=== PATIENT | male | born 1945 | race Caucasian/White ===

== ENCOUNTER 2016-10-02 11:07 | Inpatient (IN) ==
[2016-10-02] MEDS ORDERED: ASPIRIN 325 MG TABLET PO STA (11:50)
[2016-10-02] MEDS ORDERED: ONDANSETRON 4 MG/2 ML VIAL IV STA (11:50)
[2016-10-02] MEDS ORDERED: NITROGLYCERIN SL 0.4 MG TABLET SL PRN (11:50)
[2016-10-02] MEDS ORDERED: NITROGLYCERIN 2% OINT 1 INCH/GM PACK TOP STA (11:50)
[2016-10-02] MEDS ORDERED: MORPHINE 2 MG/1 ML SYRINGE IV STA (11:50)
[2016-10-02] MEDS ORDERED: ENOXAPARIN 100 MG/ML SYRINGE SUBCUT STA (11:50)
--- NOTE | 2016-10-02 11:54 | EKG Report ---
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
[2016-10-02 11:58] LABS: Basophils % 0.6 % (0.0-0.8); Eosinophils # 0.1 10*3/uL (0.0-0.87); Eosinophils % 2.1 % (0.00-10.9); Hematocrit 37.8 VOL% (42.0-52.0); Hemoglobin 12.6 GM/DL (14.0-18.0); Immature Granulocytes % 0.4 %; Immature Granulocytes Absolute 0.02 #; Lymphocytes # 1.7 10*3/uL (1.4-4.0); Lymphocytes % 31.5 % (21.2-54.2); Mean Corpuscular HGB Conc 33.3 GM/DL (32-36); Mean Corpuscular Hemoglobin 27 PG (27-34); Mean Corpuscular Volume 81.8 FL (87-102); Mean Platelet Volume 10.8 FL (9.6-12.0); Monocytes # 0.5 10*3/uL (0.11-0.8); Monocytes % 9.6 % (1.7-12.7); Neutrophils % 55.8 % (38.7-73.9); Platelet Count 197 T/CUMM (130-400); Red Blood Count 4.62 MC/CUMM (3.8-5.5); Red Cell Distribution Width 14.1 % (9.3-17.3); White Blood Count 5.3 T/CUMM (4-12)
[2016-10-02 12:04] LABS: PT Patient Result 10.4 SECS
[2016-10-02] MEDS ORDERED: ENOXAPARIN 100 MG/ML SYRINGE SUBCUT ONE (12:08)
[2016-10-02] MEDS ORDERED: NITROGLYCERIN 2% OINT 1 INCH/GM PACK TOP ONE (12:09)
[2016-10-02] MEDS ORDERED: ONDANSETRON 4 MG/2 ML VIAL ONE (12:09)
[2016-10-02] MEDS ORDERED: ASPIRIN 325 MG TABLET ONE (12:09)
[2016-10-02] MEDS ORDERED: MORPHINE 2 MG/1 ML SYRINGE ONE (12:09)
--- NOTE | 2016-10-02 12:12 | Emergency Department Note ---
Bella Gabriel Hilary, am scribing for, and in the presence of, Pedro Horn MD 11: 51. Justina Gabriel James D, MD, personally performed the services described in this documentation, ascribed by Andria Blanco in my presence, and it is both accurate and complete . Arrival - Arrival Chief Complaint: Chest Pain Stated Complaint: chest pain ED Nursing Triage Note: Left sided chest pain onset x 1 week - pt denies radiation or SOB Mode of Arrival: Ambulatory Limitations: No Limitations Source: Patient, RN Notes Reviewed - History of Present Illness HPI Narrative: Pt is a 70 y/o white male presenting to the ED with c/o chest pain which onset a week ago. Pt states the pain feels like it is right behind his shoulder blade. Pt confirms diaphoresis and tightness in his chest, SOB but denies nausea or blood in bowels. Pt has a PMHx of HTN and Dyslipidemia. Pt smokes a pack a day. No other complaints or problems stated in the ED. Onset (ago): week(s) Consistency: intermittent, now resolved Allergies/Adverse Reactions: Allergies Allergy/AdvReac Type Severity Reaction Status Date / Time No Known Allergies Allergy Unverified 10/02/16 11:08 Home Medications: Home Medications Medication Instructions Recorded Confirmed Type Carisoprodol [Soma] 350 mg PO DAILY PRN 10/02/16 10/02/16 History Celecoxib [Celebrex] 200 mg PO DAILY 10/02/16 10/02/16 History Esomeprazole Magnesium [Nexium] 20 mg PO DAILY 10/02/16 10/02/16 History Ezetimibe/Simvastatin 10-20 1 tablet PO DAILY 10/02/16 10/02/16 History [Vytorin 10-20] Review of System - Review of System 12 point system: reviewed and no additional remarkable complaints except as stated - Review of System Constitutional: Present: diaphoresis. Absent: fever Respiratory: Present: respiratory distress (SOB) Cardiovascular: Present: chest pain. Absent: dyspnea on exertion Gastrointestinal: Absent: nausea, hematochezia Medical,Surgical,& Family Hx - Medical History Cardio: History of: Hypertension Endocrine: History of: Dyslipidemia - Social History Smoking Status: Current every day smoker Frequency of Alcohol Use: Occasionally Type of Drug Use: None Exam Physical Examination: GENERAL: This is a well-nourished, well-developed in no apparent distress. VITAL SIGNS: Temperature: 97.3 Pulse: 70 Respiratory: 20 Blood Pressure: 169 /84 02Sat: 97 HEENT: Head is normocephalic and atraumatic. Pupils are equally round and reactive to light. Extraocular movement are intact. Oropharynx is benign with moist mucous membranes. NECK: Neck is soft and supple without tenderness. There are no masses. There is no lymphadenopathy. LUNGS: Lungs are clear to auscultation bilaterally. Chest rises symmetrically. There is no chest wall tenderness. CV: Heart is regular rate and rhythm without murmurs, rubs, or gallops. ABDOMEN: Abdomen is soft, non-tender to palpation. There are no abnormal masses palpated. There is no organomegaly. Bowel sounds are present and active. SKIN: Skin is warm and dry. No rash. EXTREMITIES: Patient has full range of motion without tenderness. There is no pedal edema. NEUROLOGIC: Awake, alert, and oriented x4. Cranial nerves II through XII are grossly intact. There are no motorsensory deficits. PSYCHIATRIC: Normal affect. Normal mood. Vital Signs: Vital Signs Temperature 97.3 F L 10/02/16 11:35 Pulse Rate 70 10/02/16 11:35 Respiratory Rate 18 10/02/16 11:35 Blood Pressure 169/84 10/02/16 11:35 O2 Sat by Pulse Oximetry 97 10/02/16 11:09 Course - Consultations Consultation #1: Discussed with Dr. Sánchez. The patient will be seen in the emergency department. Time: 13:25 Results - Labs CBC & BMP: 10/02/16 11:43 10/02/16 11:43 Lab Results: I have reviewed the patients labs Labs: Laboratory Tests 10/02/16 11:43 WBC 5.3 RBC 4.62 Hgb 12.6 L Hct 37.8 L MCV 81.8 L - EKG EKG results: interpreted by ERMD - Impressions EKG: Normal sinus rhythm with a rate of 60, nonspecific ST-T wave changes, normal axis. Old septal IL. - Diagnostic Findings Procedure: Chest x-ray: report reviewed by me (1. Mild cardiomegaly 2. No acute pulmonary process is identified) Disposition Clinical Impression: ACS (acute coronary syndrome), Hyperlipidemia Case discussed with: patient Disposition: Still a Patient Condition: Guarded Time of Disposition: 13:08
[2016-10-02 12:24] LABS: Alanine Aminotransferase 21 U/L (16-61); Albumin 4.1 G/DL (3.4-5.0); Alkaline Phosphatase 51 U/L (45-117); Aspartate Amino Transferase 17 U/L (0-37); Bilirubin,Total < 0.39 MG/DL (0.2-1.0); Blood Urea Nitrogen 13 MG/DL (7-18); Calcium 8.4 MG/DL (8.5-10.1); Glucose 83 MG/DL (74-106); Osmolality,Calculated 279.3 MOS/KG (273-304); Potassium 4.1 MMOL/L (3.5-5.1); Sodium 141 MMOL/L (136-145); Total Protein 6.6 G/DL (6.4-8.3)
--- NOTE | 2016-10-02 12:41 | XRay Report ---
Exam: Chest 2 views Date: October 02, 2016 at 12:04 PM Comparison: None Reason: Chest pain Findings: The cardiac silhouette is mildly enlarged. No focal consolidation, pneumothorax or pleural effusion is identified. No acute osseous process is seen. Impression: 1. Mild cardiomegaly. 2. No acute pulmonary process is identified. PROCEDURE INTERPRETED AT [facility] DEPARTMENT OF RADIOLOGY Final Report Signed by: Dr. Nicolasa Bryan
[2016-10-02] MEDS ORDERED: ONDANSETRON 4 MG/2 ML VIAL IV PRN (14:24)
[2016-10-02] MEDS ORDERED: MAGNESIUM SULF RIDER 2 GM in PREMIX 1 EACH IV PRN (14:24)
[2016-10-02] MEDS ORDERED: MAGNESIUM SULF RIDER 4 GM in PREMIX 1 EACH IV PRN (14:24)
[2016-10-02] MEDS ORDERED: DOCUSATE SODIUM 100 MG CAPSULE PO PRN (14:24)
[2016-10-02] MEDS ORDERED: ZALEPLON 5 MG CAPSULE PO PRN (14:24)
[2016-10-02] MEDS ORDERED: ACETAMINOPHEN 325 MG TABLET PO PRN (14:24)
[2016-10-02] MEDS ORDERED: CARISOPRODOL 350 MG TABLET PO PRN (14:27)
--- NOTE | 2016-10-02 14:41 | Cardiology History & Physical ---
Assessment and Plan - Time spent with patient Time spent with patient: Greater than 30 minutes Time spent discussing smoking cessation with patient: 3 to 10 minutes (1) Chest pain Status: Acute Assessment and plan: SEE PLAN OF CARE LISTED BELOW Current Visit: Yes (2) Tobacco abuse Status: Chronic Assessment and plan: SEE PLAN OF CARE LISTED BELOW Current Visit: Yes (3) PVD (peripheral vascular disease) Status: Chronic Assessment and plan: SEE PLAN OF CARE LISTED BELOW Current Visit: Yes (4) Abdominal bruit Status: Acute Assessment and plan: SEE PLAN OF CARE LISTED BELOW Current Visit: Yes (5) Hyperlipidemia Status: Acute Current Visit: Yes History of Present Illness Chief complaint: back pain, chest pain History of present illness: FILTER CHANGING TECHNICIAN: DR. SÁNCHEZ (NEW) Mr. Diaz, 70WM, not previously followed by cardiology. Risk factors include: Age, tobaccoism, peripheral vascular disease, dyslipidemia. Presented to the emergency department this morning after experiencing approximately 1 week of left upper back pain, located primarily under the left scapula. This does not radiate nor cause nausea, vomiting or diaphoresis. It is not associated with shortness of breath. Unable to reproduce the discomfort with palpation. Moving in a certain direction does improve the discomfort. However , yesterday, after playing golf he began to experience a mid chest fullness as if food was stuck in his esophagus. This lasted approximately 20 minutes. He felt clammy and diaphoretic at that time. He rates the discomfort as a 7 on a scale of 1-10. He can identify no aggravating factors nor any alleviating factors. There is no radiation associated chest discomfort. He does take Celebrex daily, also a PPI daily. Upon examination, patient has a soft abdominal bruit, decreased pulses noted to both lower extremities. He is scheduled to see Dr. Leigh tomorrow to discuss findings of recent workup regarding his lower extremity claudication symptoms. He has previously seen Dr. Oliver Sheikh and was started on Pletal several years ago. He felt as if the Pletal did not change his symptoms before he did not continue to take. He is very active. 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 He tells me he is left-handed and carries heavy items frequently in his left arm and shoulder. 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 He tells me as he begins running down the court he feels the right lower leg cramp, burn and he must stop after approximately 2 minutes. However, after he rests a few minutes he tells me he can then go as long as he would like to get. Majority of the load he reports having had a stress test several years ago at [facility] but not does not formally see a live out nanny. He believes this was a preop evaluation for knee surgery Cardiac biomarkers are negative, EKG reveals possible old infarct. He does smoke approximately 1 pack per day for the past 50+ years. He also drinks alcohol routinely. He did not know his father's medical history that his mother lived to be 88, maternal grandparents both lived to be in their late 90s. Upon examination, patient does have a soft abdominal bruit. I have discussed this with Dr. Sánchez. Patient is agreeable to stay overnight. I will order CT angiogram of chest/aorta today. Echocardiogram. Possible stress test in the morning. Depending on results of CT the result may consult Dr. Leigh to see during hospital stay as he has an appointment to see Dr. Leigh tomorrow for right lower extremity claudication. ASSESSMENT/PLAN: 1. CHEST PAIN - CTA chest and Aorta today. Patient certainly has risk factors for CAD. He is agreeable for overnight stay for CT of his chest and stress test tomorrow. 2. DYSLIPIDEMIA - lipid profile in the morning. Continue current lipid- lowering agent 3. ABDOMINAL BRUIT -CT of aorta today 4. PVD - followed by Dr. Iniguez 5. TOBACCOISM - greater than 5 minutes was spent today discussing the merits of tobacco cessation Home Medications Medication Instructions Recorded Confirmed Type Carisoprodol [Soma] 350 mg PO DAILY PRN 10/02/16 10/02/16 History Celecoxib [Celebrex] 200 mg PO DAILY 10/02/16 10/02/16 History Esomeprazole Magnesium [Nexium] 20 mg PO DAILY 10/02/16 10/02/16 History Ezetimibe/Simvastatin 10-20 1 tablet PO DAILY 10/02/16 10/02/16 History [Vytorin 10-20] Allergies Allergy/AdvReac Type Severity Reaction Status Date / Time No Known Allergies Allergy Unverified 10/02/16 11:08 Review of systems: REVIEW OF SYSTEMS: See HPI - Constitutional Constitutional: Absent: syncope, anorexia, night sweats - EENT Eyes: Absent: blurry vision, loss of vision, diplopia Ears: Absent: decreased hearing, ear pain, ear discharge - Cardiovascular Cardiovascular: Denies: chest pain with exertion, dyspnea on exertion, edema, palpitations. Absent: chest pain with deep breath. Present: Claudication right lower extremity. See HPI - Respiratory Respiratory: Denies: ALMEIDA, cough. Absent: wheezing, hemoptysis, change in phlegm color - Gastrointestinal Gastrointestinal: Denies: constipation. Absent: abdominal pain, hematemesis, hematochezia, melena, change in bowel habits, nausea - Genitourinary Genitourinary: Absent: difficulty urinating, dysuria, urinary hesitancy, flank pain - Musculoskeletal Musculoskeletal: Present: back pain Absent: joint swelling, muscle cramps, muscle weakness - Neurological Neurological: Present: normal gait without frequent falls. Absent: dizziness, hemiparesis - Psychiatric Psychiatric: Absent: anxiety, depression, difficulty concentrating - Endocrine Endocrine: Absent: cold intolerance, heat intolerance, polyuria, polyphagia, polydipsia - Hematologic/Lymphatic Hematologic/Lymphatic: Present: easy bruising. Absent: easy bleeding -Integumentary Integumentary: Absent: lesions, rashes, skin breakdown Medical,Surgical,& Family Hx - Medical History Cardio: History of: Hypertension, PVD No history of: CAD, HI Endocrine: History of: Dyslipidemia - Social History Smoking Status: Current every day smoker Have you smoked in the last 12 months: Yes Time spent discussing smoking cessation with patient: 3 to 10 minutes Frequency of Alcohol Use: Occasionally Type of Drug Use: None Marital Status: Single Lives With:: Alone Functional capacity: independent ambulation Cardiology Physical Exam - Constitutional Vitals: Vital Signs Temp Pulse Resp BP Pulse Ox 97.3 F L 58 L 18 145/81 100 10/02/16 11:35 10/02/16 12:45 10/02/16 12:45 10/02/16 12:45 10/02/16 12:45 Intake and Output 10/01/16 10/02/16 10/02/16 23:59 07:59 15:59 Other: Weight 72.575 kg Patient Weight 10/02/16 23:59 Weight 72.575 kg Exam: General: [Appears well with no apparent distress.] [Pleasant and cooperative. ] [Appears comfortable.] HEENT: [PERRL, normocephalic, atraumatic. Mucous membranes moist. No jaundice noted. Conjunctiva moist and clear, sclerae anicteric] Neck: No JVD/HJR, no thyromegaly or lymphadenopathy noted. Cardiac: [Regular rate and rhythm.] [No obvious murmur, rub or gallop.] Lungs: [Clear to auscultation without accessory muscle use to assist the respiratory pattern.] Not requiring oxygen Abdomen: Soft, bowel sounds normoactive. Nontender and nondistended. Soft abdominal bruit noted. No mass or thrill appreciated Musculoskeletal: No fluid collection. Decreased range of motion is noted. Extremities: No clubbing, cyanosis noted. [ No edema noted.] Upper extremity pulses 2+. Difficult to palpate bilateral lower extremities though warm with brisk cap refill. Skin: No unusual lesions or rashes. No skin breakdown appreciated. Neuro: Awake, alert and oriented 3. Moves all extremities well without hemiparesis or paralysis. No essential tremor is appreciated. Result/EKG - Labs CBC & BMP: 10/02/16 11:43 10/02/16 11:43 Lab Results: I have reviewed the past 24 hour labs Labs: Laboratory Results - last 24 hr 10/02/16 10/02/16 10/02/16 11:43 11:43 11:43 WBC 5.3 RBC 4.62 Hgb 12.6 L Hct 37.8 L MCV 81.8 L MCH 27 MCHC 33.3 RDW 14.1 Plt Count 197 MPV 10.8 Neut % (Auto) 55.8 Lymph % (Auto) 31.5 Colbert % (Auto) 9.6 Eos % (Auto) 2.1 Baso % (Auto) 0.6 Neut # (Auto) 3.0 Lymph # (Auto) 1.7 Colbert # (Auto) 0.5 Eos # (Auto) 0.1 Baso # (Auto) 0.0 Immature Gran % 0.4 Nucleated RBC % 0.0 Immature Gran # 0.02 Nucleated RBCs # 0.00 INR 1.0 PT Patient/Control Mix 10.4 Circ Anticoag PTT 25.0 Sodium Potassium Chloride Carbon Dioxide Anion Gap BUN Creatinine GFR Calculation BUN/Creatinine Ratio Glucose Calculated Osmolality Calcium Total Bilirubin AST ALT Alkaline Phosphatase Troponin I < 0.015 Total Protein Albumin Globulin Albumin/Globulin Ratio 10/02/16 11:43 WBC RBC Hgb Hct MCV MCH MCHC RDW Plt Count MPV Neut % (Auto) Lymph % (Auto) Colbert % (Auto) Eos % (Auto) Baso % (Auto) Neut # (Auto) Lymph # (Auto) Colbert # (Auto) Eos # (Auto) Baso # (Auto) Immature Gran % Nucleated RBC % Immature Gran # Nucleated RBCs # INR PT Patient/Control Mix Circ Anticoag PTT Sodium 141 Potassium 4.1 Chloride 106 Carbon Dioxide 29 Anion Gap 10.1 BUN 13 Creatinine 0.70 GFR Calculation 102 BUN/Creatinine Ratio 18.00 Glucose 83 Calculated Osmolality 279.3 Calcium 8.4 L Total Bilirubin < 0.39 AST 17 ALT 21 Alkaline Phosphatase 51 Troponin I Total Protein 6.6 Albumin 4.1 Globulin 2.5 Albumin/Globulin Ratio 1.6 - Diagnostic Findings Procedure: Chest x-ray: report reviewed by me - EKG EKG results: interpreted by me EKG shows: sinus rhythm
--- NOTE | 2016-10-02 14:58 | EKG Report ---
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
[2016-10-02 15:09] LABS: Risk Ratio 3.6; Thyroid Stimulating Hormone 1.03 uIU/ml (0.358-3.74); VLDL CHOLESTEROL 62.4 MG/DL
--- NOTE | 2016-10-02 15:37 | CT Report ---
History: Back pain. Abdominal bruit. Chest pain Date: 10/02/2016 Study: CT angiogram of the aorta complete Comparison exam: No previous similar study Thin spiral CT sections were obtained through the entire aorta following 100 mL Omnipaque 350 IV contrast. Multiplanar reconstruction images are also evaluated. 3-D images were also generated, archived, and analyzed. This CT exam was performed using one or more the following dose reduction techniques: Automated exposure control, adjustment of the MA and/or KV according to patient size, or use of iterative reconstruction technique. There is no thoracic aortic dissection or focal aneurysm. There is a variant arch anatomy, as the left vertebral artery originates directly from the aorta, just proximal to the left subclavian artery. There is mild aortic arch calcification. There is at least mild coronary artery calcification with involvement of the left anterior descending and left circumflex and right coronary arteries. There is no significant stenosis at the origins of the celiac, superior mesenteric, or patent inferior mesenteric arteries. There is no high-grade stenosis at the origins of the renal arteries. There is mild calcified plaque in the proximal aspect of either main renal artery. There is a small accessory renal artery to the lower pole left kidney. There is no dissection or focal aneurysm of the abdominal aorta. There is some moderate atherosclerotic irregularity of the infrarenal abdominal aorta and common iliac arteries. There is no high-grade stenosis of the common or external iliac arteries or at the proximal aspect of either internal iliac artery. There is moderate centrilobular emphysema, more so in the upper lung zones. There is some localized paraseptal emphysema in the right lower lobe posteriorly and inferiorly. There is mild platelike scar or subsegmental atelectasis in the right lower lobe. There are spondylotic changes of the thoracic spine. There is no mediastinal lymphadenopathy or mediastinal mass otherwise. There is a small hiatal hernia. There are 2 rounded low densities measuring 13 mm and less, likely hepatic cysts. The liver is otherwise unremarkable. The pancreas, adrenal glands, kidneys, bile ducts, and fluid-filled gallbladder are unremarkable. There is nonspecific diffuse splenomegaly. The spleen measures 12.8 x 10.8 x 7.3 cm. There is no lymphadenopathy in the upper abdomen. There is degenerative disc disease in the spine. There is no pelvic mass. There is moderate nonspecific diffuse prominence of prostate gland. Scattered diverticula are noted in sigmoid colon. The appendix is normal. Impression: No evidence of aortic aneurysm or dissection. No high-grade stenosis of the thoracic or abdominal aorta. Coronary artery calcification. Variant anatomy with left vertebral artery originating directly from the aortic arch. There is also a small accessory renal artery to the lower pole left kidney. Nonspecific splenomegaly Diverticulosis PROCEDURE INTERPRETED AT [facility] DEPARTMENT OF RADIOLOGY Final Report Signed by: Dr. Bre Underwood
[2016-10-02] MEDS: PANTOPRAZOLE 40 MG TABLET PO SCH (18:01)
[2016-10-02] MEDS: METOPROLOL TARTRATE 25 MG TABLET PO SCH (21:20)
[2016-10-03 05:12] LABS: Basophils % 0.7 % (0.0-0.8); Eosinophils # 0.1 10*3/uL (0.0-0.87); Eosinophils % 2.2 % (0.00-10.9); Hemoglobin 11.6 GM/DL (14.0-18.0); Immature Granulocytes % 0.5 %; Immature Granulocytes Absolute 0.03 #; Lymphocytes # 1.7 10*3/uL (1.4-4.0); Lymphocytes % 31.1 % (21.2-54.2); Mean Corpuscular HGB Conc 32.2 GM/DL (32-36); Mean Corpuscular Hemoglobin 26 PG (27-34); Mean Corpuscular Volume 81.1 FL (87-102); Mean Platelet Volume 10.7 FL (9.6-12.0); Monocytes # 0.5 10*3/uL (0.11-0.8); Monocytes % 8.3 % (1.7-12.7); Neutrophils # 3.2 10*3/uL (1.4-7.4); Neutrophils % 57.2 % (38.7-73.9); Platelet Count 181 T/CUMM (130-400); Red Blood Count 4.44 MC/CUMM (3.8-5.5); White Blood Count 5.5 T/CUMM (4-12)
[2016-10-03 05:56] LABS: Alanine Aminotransferase 19 U/L (16-61); Albumin 3.7 G/DL (3.4-5.0); Alkaline Phosphatase 50 U/L (45-117); Aspartate Amino Transferase 15 U/L (0-37); Bilirubin,Total < 0.39 MG/DL (0.2-1.0); Blood Urea Nitrogen 12 MG/DL (7-18); Calcium 8.6 MG/DL (8.5-10.1); Glucose 93 MG/DL (74-106); Osmolality,Calculated 282.1 MOS/KG (273-304); Sodium 142 MMOL/L (136-145); Total Protein 5.9 G/DL (6.4-8.3)
[2016-10-03] MEDS ORDERED: REGADENOSON 0.4 MG/5 ML SYRINGE IV ONE (09:01)
--- NOTE | 2016-10-03 09:27 | ECHO Report ---
Pedro Alaniz 10/02/2016 Exam Date: 15:57 Referring Physician: Venita Julien Technologist: RAVI Age: 70 Ht (in): 67 Wt (lb): 160 MExam Location: [facility] Gender: Echo [id number]: Chest pain, unspecified, Nicotine deIndications:pendence, cigarettes, uncomplicated, Hyperlipidemia, unspecified, Essential (primary) hypertension, Peripheral vascular disease, unspecified BP: 169 / 84 HR: 52 SinusRhythm: GoodTechnical Quality: IMPRESSIONS Normal LV systolic function, ejection fraction 60%. Grade 1/4 diastolic dysfunction. Mild mitral and tricuspid regurgitation. Trace pulmonic regurgitation. Pulmonary hypertension with pulmonary artery pressure estimated at 50 mmHg. Mildly dilated aortic root. MEASUREMENTS (Male / Female) Normal Values 2D ECHO LV Diastolic Diameter PLAX 5.6 cm 4.2 - 5.9 / 3.9 - 5.3 cm LV Systolic Diameter PLAX 3.6 cm LV Fractional Shortening PLAX 36.3 % IVS Diastolic Thickness 1.1 cm 0.6 - 1.0 / 0.6 - 0.9 cm LVPW Diastolic Thickness 1.0 cm 0.6 - 1.0 / 0.6 - 0.9 cm RV Internal Dim ED PLAX 3.3 cm Aortic Root Diameter 3.9 cm LA Systolic Diameter LX 3.3 cm 3.0 - 4.0 / 2.7 - 3.8 cm DOPPLER TR Peak Velocity 315.0 cm/s TR Peak Gradient 39.7 mmHg FINDINGS Left Ventricle Normal left ventricular cavity size. Mild left ventricular hypertrophy. Left ventricular ejection fraction is estimated at 60 %. Right Ventricle The right ventricle is normal in size and function. Right Atrium Normal size. Left Atrium Normal size. Mitral Valve Thickened mitral valve. Mild mitral valve regurgitation. Aortic Valve Aortic valve sclerosis without stenosis. No aortic valve regurgitation. Tricuspid Valve Morphologically normal tricuspid valve. Mild tricuspid valve regurgitation. Tricuspid regurgitation velocities suggest a PAP of 50 mmHg. Pulmonic Valve Morphologically normal pulmonic valve. Trace pulmonary valve regurgitation. Pericardium Normal pericardium without effusion. Aorta Mildly dilated. Chiara Conteh MD (Electronically Signed) 03 Oct 2016 09:26Final Date:
[2016-10-03] MEDS: EZETIMIBE PO SCH (10:30)
[2016-10-03] MEDS: ASPIRIN EC 81 MG TABLET PO SCH (10:30)
[2016-10-03] MEDS: SIMVASTATIN PO SCH (10:30)
[2016-10-03] MEDS: METOPROLOL TARTRATE 25 MG TABLET PO SCH ×2 (10:30→21:24)
[2016-10-03] MEDS: PANTOPRAZOLE 40 MG TABLET PO SCH (10:30)
--- NOTE | 2016-10-03 11:32 | Cardiology Progress Note ---
Assessment and Plan - Time spent with patient Time spent with patient: Greater than 30 minutes (1) Chest pain Status: Resolved Assessment and plan: SEE PLAN OF CARE LISTED BELOW Current Visit: Yes (2) Tobacco abuse Status: Chronic Assessment and plan: SEE PLAN OF CARE LISTED BELOW Current Visit: Yes (3) PVD (peripheral vascular disease) Status: Chronic Assessment and plan: SEE PLAN OF CARE LISTED BELOW Current Visit: Yes (4) Abdominal bruit Status: Chronic Assessment and plan: SEE PLAN OF CARE LISTED BELOW Current Visit: Yes (5) Hyperlipidemia Status: Chronic Current Visit: Yes Cardiology - PN: Subj Interval history: 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 Diaz, 70WM, not previously followed by cardiology. Risk factors include: Age, tobaccoism, peripheral vascular disease, dyslipidemia. Presented to the emergency department Sunday morning with complaints of left upper back pain, shortness of breath. He is n.p.o. this morning for stress testing. Overnight, he has had no chest pain, heaviness or tightness. He did undergo CT of the aorta yesterday which revealed no significant abnormality. Cardiac biomarkers negative. EKG unremarkable. Patient would like to see Dr. Iniguez today if possible. He currently has an appointment at 1 PM to discuss symptoms of claudication of his right lower extremity. Echo reveals EF 60%, no significant valvular abnormality, PAP 50mmHg. ASSESSMENT/PLAN: 1. CHEST PAIN - CTA Chest and Aorta revealed no acute abnormality. No dissection or aneurysm. NPO for stress testing today. 2. DYSLIPIDEMIA - LDL 103. Trigs 312. Will add [place] 3 BID and have him follow up with PCP for future monitoring. 3. ABDOMINAL BRUIT - benign per CT Chest and Aorta. 4. PVD - followed by Dr. Iniguez. Recommends ASA 81mg orally daily and smoking cessation. Appreciate Dr. Iniguez seeing him today. 5. TOBACCOISM - greater than 5 minutes was spent today discussing the merits of tobacco cessation Exam (Progress Note) - Constitutional Vitals: Period Temp Pulse Resp BP Sys/Webber Pulse Ox Last 24 Hr 97.5 F-98.9 F 53-77 16-20 111-179/59-79 91-99 Exam: General: [Appears well with no apparent distress.] [Pleasant and cooperative. ] [Appears comfortable.] HEENT: [PERRL, normocephalic, atraumatic. Mucous membranes moist. No jaundice noted. Conjunctiva moist and clear, sclerae anicteric] Neck: No JVD/HJR, no thyromegaly or lymphadenopathy noted. No carotid bruit appreciated Cardiac: [Regular rate and rhythm.] [No murmur rub or gallop.] Lungs: [Clear to auscultation without accessory muscle use to assist the respiratory pattern.] Not requiring oxygen Abdomen: Soft, bowel sounds normoactive. Nontender and nondistended. No auscultated bruit today. No abdominal thrill noted. No masses noted. Musculoskeletal: No fluid collection. Decreased range of motion is noted. Extremities: No clubbing, cyanosis noted. [ No edema noted.] Upper extremity pulses 2+. Left lower extremity pulse one plus. Difficult to palpate right lower extremity pulse. Capillary refill less than 3 seconds. Skin: No unusual lesions or rashes. No skin breakdown appreciated. Neuro: Awake, alert and oriented 3. Moves all extremities well without hemiparesis or paralysis. No essential tremor is appreciated. Result/EKG - Labs CBC & BMP: 10/03/16 04:54 10/03/16 04:54 Lab Results: I have reviewed the past 24 hour labs Labs: Laboratory Results - last 24 hr 10/02/16 10/02/16 10/03/16 15:01 17:56 04:54 WBC 5.5 RBC 4.44 Hgb 11.6 L Hct 36.0 L MCV 81.1 L MCH 26 L MCHC 32.2 RDW 14.0 Plt Count 181 MPV 10.7 Neut % (Auto) 57.2 Lymph % (Auto) 31.1 [place] % (Auto) 8.3 Eos % (Auto) 2.2 Baso % (Auto) 0.7 Neut # (Auto) 3.2 Lymph # (Auto) 1.7 [place] # (Auto) 0.5 Eos # (Auto) 0.1 Baso # (Auto) 0.0 Immature Gran % 0.5 Nucleated RBC % 0.0 Immature Gran # 0.03 Nucleated RBCs # 0.00 Sodium Potassium Chloride Carbon Dioxide Anion Gap BUN Creatinine GFR Calculation BUN/Creatinine Ratio Glucose Calculated Osmolality Calcium Total Bilirubin AST ALT Alkaline Phosphatase Troponin I < 0.015 < 0.015 Total Protein Albumin Globulin Albumin/Globulin Ratio 10/03/16 04:54 WBC RBC Hgb Hct MCV MCH MCHC RDW Plt Count MPV Neut % (Auto) Lymph % (Auto) [place] % (Auto) Eos % (Auto) Baso % (Auto) Neut # (Auto) Lymph # (Auto) [place] # (Auto) Eos # (Auto) Baso # (Auto) Immature Gran % Nucleated RBC % Immature Gran # Nucleated RBCs # Sodium 142 Potassium 5.0 Chloride 107 Carbon Dioxide 29 Anion Gap 11.0 BUN 12 Creatinine 0.90 GFR Calculation 88 BUN/Creatinine Ratio 13.00 Glucose 93 Calculated Osmolality 282.1 Calcium 8.6 Total Bilirubin < 0.39 AST 15 ALT 19 Alkaline Phosphatase 50 Troponin I Total Protein 5.9 L Albumin 3.7 Globulin 2.2 L Albumin/Globulin Ratio 1.6 - Diagnostic Findings Procedure: Chest x-ray: report reviewed by me, CT - chest: report reviewed by me , Ultrasound: report reviewed by me (Echo) - EKG EKG results: interpreted by me EKG shows: sinus rhythm
--- NOTE | 2016-10-03 12:05 | Vascular Surgery Consult Note ---
History of Present Illness Chief complaint: claudication History of present illness: Mr. Alaniz is a 70 year old male Mr. Kearney is a 70-year-old man with a long history of cigarette smoking admitted with chest pain has been evaluated and apparently does not have significant coronary ischemia. He does have a history of having seen Dr. Cortes sometime around 2014 and at that point had some mildly diminished pulses in his right leg compared to the left although both ABIs were normal he was started on Pletal in the past 8 months but states he cannot tell any difference. His primary complaint is that he notes when he first gets up in the morning it takes a little while before he will have some stinging and cramping in the right calf but then is able to go out to work throughout the day without difficulty. 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 He is recently undergone lower arterial Dopplers at our office and we have an CHARBEL on the right of 0.8 and on the left 0.9 I do not have the study to completely look at the pulse volume recordings at this point in time but will do so. In discussing the situation with him my thoughts are that his primary treatment is cigarette cessation. I think he should continue to work and call basketball and exercise I do recommend starting a 81 mg aspirin on a daily basis which she does not do. But I did emphasize the first choice of treatment will be's cigarette cessation. I do not recommend consideration for intervention with his minimal symptoms until such time as the symptoms have continued if they become life limiting and he has actually quit smoking. Home Medications Medication Instructions Recorded Confirmed Type Ascorbic Acid [Vitamin C] 500 mg PO DAILY 10/02/16 10/02/16 History Carisoprodol [Soma] 350 mg PO DAILY PRN 10/02/16 10/02/16 History Celecoxib [Celebrex] 200 mg PO DAILY 10/02/16 10/02/16 History Cholecalciferol (Vitamin D3) 5,000 unit PO DAILY 10/02/16 10/02/16 History [Vitamin D3] Cilostazol [Cilostazol] 100 mg PO BID 10/02/16 10/02/16 History Esomeprazole Magnesium [Nexium] 20 mg PO DAILY 10/02/16 10/02/16 History Ezetimibe/Simvastatin 10-20 1 tablet PO DAILY 10/02/16 10/02/16 History [Vytorin 10-20] Hydrocodone/Acetaminophen 1 tablet PO Q6HR PRN 10/02/16 10/02/16 History [Hydrocodon-Acetaminoph 7.5-325] Krill Oil 500 mg PO DAILY 10/02/16 10/02/16 History Multivitamin [Multivitamins] 1 tablet PO DAILY 10/02/16 10/02/16 History Testosterone [Androgel 1.62% Gel 1 % DIRECTED 10/02/16 10/02/16 History PUMP] Allergies Allergy/AdvReac Type Severity Reaction Status Date / Time No Known Allergies Allergy Unverified 10/02/16 11:08 Medical,Surgical,& Family Hx - Medical History Cardio: History of: Hypertension, PVD No history of: CAD, AR Psychological: History of: Anxiety Disorders Endocrine: History of: Dyslipidemia Gastrointestinal: History of: GERD Musculoskeletal: History of: Back/Neck Problems (DDD) - Surgical History Orthopedic Surgeries: Surgical HX of;: Orthopedic Surgery (BACK, R rotator, BL Knee) - Family History Family History: Reports;: Family Heart Disease, Family Hypertension - Social History Smoking Status: Current every day smoker Frequency of Alcohol Use: Occasionally Type of Drug Use: None Exam - Constitutional Vitals: Period Temp Pulse Resp BP Sys/Webber Pulse Ox Last 24 Hr 97.5 F-98.9 F 53-77 16-20 111-179/59-79 91-99 Results - Labs CBC & BMP: 10/03/16 04:54 10/03/16 04:54
--- NOTE | 2016-10-03 13:32 | Event Note ---
Patient underwent stress testing this morning. Patient traversed treadmill for 7-1/2 minutes however, due to right lower extremity claudication, patient was transitioned to Lexiscan protocol. He had no chest pain, heaviness or tightness. No ST abnormality noted. Occasional PVC noted. Blood pressure responded appropriately. Now, patient is being transitioned to nuclear medicine for final scan. Dr. Sánchez to read, interpreted and advise.
--- NOTE | 2016-10-03 19:27 | Nuclear Medicine Report ---
CARDIAC STRESS TEST REPORT INDICATION: Chest test performed, attempted treadmill stress test, which was converted to Lexiscan pharmacologic stress due to claudication. PROCEDURE: At rest, 10 mCi of 99-Technetium with Sestamibi was injected and rest images were obtained. The patient started exercising, according to the [place] treadmill stress protocol. He was able to exercise for 9 minutes, 41 seconds, achieving a peak heart rate of 69% of the predicted maximum, up to 104 beats per minute. The stress test was stopped due to claudication. The baseline blood pressure was 122/70, 146/78 at peak stress. There was no chest pain. The patient did not reach the submaximal predicted heart rate, the test was converted to Lexiscan stress test. After Lexiscan injection 30 mCi of 99-Technetium with Sestamibi was injected and post stress images were obtained. FINDINGS: At the baseline, sinus rhythm, without significant repolarization changes. During this stress test portion of the test, frequent, uniform PVCs were observed. There were no ischemic EKG changes at peak stress and after Lexiscan injection. Rest and post- stress gated and perfusion images were obtained. The end-diastolic volume is 149 cc, the end-systolic volume is 81 cc, the calculated left ventricular ejection fraction is 45%. The inferior wall is hypokinetic, the remaining segments have normal motion. At rest, there is a moderate size area in the inferior apical region, of mildly decreased activity, which becomes moderately photopenic after stress. This is consistent with old myocardial disease, with superimposed ischemia. CONCLUSION: 1. CLINICALLY NONDIAGNOSTIC TREADMILL STRESS TEST, STOPPED DUE TO LOWER EXTREMITY CLAUDICATION. 2. UNIFORM FREQUENT PVCS DURING STRESS. 3. IMAGES SUGGESTIVE OF OLD MYOCARDIAL DISEASE, WITH SUPERIMPOSED ISCHEMIA WITH MILD CARDIOMYOPATHY. 4. THIS IS A MODERATE RISK TEST. Procedure performed and interpreted at [facility] Department of Radiology. [facility]
[2016-10-03] MEDS: OMEGA 3 ACID ETHYL ESTERS 1 GM CAPSULE PO SCH (21:24)
--- NOTE | 2016-10-03 22:15 | Event Note ---
I have reviewed the chart, discussed the case with Dr. Sánchez and Ena Kitchen NP. The patient is at risk for underlying coronary artery disease, and presented with somewhat atypical symptoms. He has a possible mild cardiomyopathy, exertional PVCs and abnormal perfusion scan suggesting ischemia. I discussed the role, risks and benefits of cardiac catheterization with the patient and he is agreeable to proceeding. He denies history of IVP dye allergy or contraindication to dual antiplatelet therapy.
[2016-10-03] MEDS ORDERED: DIAZEPAM 5 MG TABLET PO ONE (22:16)
[2016-10-03] MEDS ORDERED: POTASSIUM CHLORIDE RIDER 10 MEQ in PREMIX 1 EACH IV PRN (22:16)
[2016-10-03] MEDS ORDERED: diphenhydrAMINE CAP 25 MG CAPSULE PO ONE (22:16)
[2016-10-03] MEDS: SODIUM CHLORIDE 0.45% 1,000 ML IV SCH (23:20)
[2016-10-04] MEDS ORDERED: DIAZEPAM 5 MG TABLET ONE (08:52)
[2016-10-04] MEDS ORDERED: diphenhydrAMINE CAP 25 MG CAPSULE ONE (08:52)
[2016-10-04] MEDS: METOPROLOL TARTRATE 25 MG TABLET PO SCH (09:12)
[2016-10-04] MEDS: ASPIRIN EC 81 MG TABLET PO SCH (10:47)
[2016-10-04] MEDS ORDERED: SODIUM BICARBONATE 2.4 MEQ/5 ML VIAL ONE (10:48)
[2016-10-04] MEDS ORDERED: HEPARIN/NACL 0.9% 2 UNITS/ML 1,000 ML IV ONE (10:48)
[2016-10-04] MEDS ORDERED: LIDOCAINE 1% 20 ML VIAL ONE (10:48)
--- NOTE | 2016-10-04 11:08 | History and Physical Update ---
Sedation H&P Update - Dictation Physical: refer to H&P completed by admitting physician - Physical Exam Mental Status: alert and oriented Heart: regular rate and rhythm Lung: clear to auscultation Abdomen: within normal limits Vitals: within normal limits - Sedation Plan for Sedation: moderate Patient Consent: Procedure disscussed with patient and patinet has consented., Risks and benefits were discussed with patient,including infection,, bleeding, injury to surrounding structures, seizure, temporary nerve, Patient understands and accepts potential risks/benefits and agrees to, proceed. ASA Class: IV Airway Assessment: Class I: Soft palate, uvula, fauces, pillars visible
[2016-10-04] MEDS ORDERED: fentaNYL 100 MCG/2 ML VIAL ONE (11:10)
[2016-10-04] MEDS ORDERED: MIDAZOLAM 2 MG/2 ML VIAL ONE ×2 (11:10→11:45)
[2016-10-04] MEDS ORDERED: MORPHINE 2 MG/1 ML SYRINGE IV PRN (11:44)
--- NOTE | 2016-10-04 12:03 | Cardiac Catheterization ---
Date of Procedure:: 10/04/16 Pre-op Diagnosis: Shortness of breath, chest pain, abnormal stress test Post-op diagnosis: other (Severe single-vessel coronary artery disease) Procedure: 1. Selective left and right coronary angiography. 2. Left heart catheterization with left ventriculogram. 3. Right iliac angiography to rule out vascular complications. Impression: 1. Severe single-vessel coronary artery disease. A. 100% proximally occluded right coronary artery with right to right and left to right collateralization, long region of stenosis. B. LAD is diffusely small and diseased with up to 50% stenosis in the proximal segment. 2. Right dominant coronary arteries. 3. Ejection fraction 45% with inferior wall regional wall motion abnormalities. 4. Mild atherosclerotic vascular disease of the right iliac artery without evidence of vascular complications. Plan: 1. Medical management. 2. Risk factor modification. Equipment: Diagnostic 6 Slovenian JL 5, JR4, pigtail catheters. Hemodynamics: Aortic pressure 134/67 mmHg, left ventricular pressure 138/3 mmHg, LVEDP 13 mmHg Sedation: Versed 3 mg, fentanyl 75 mcg Procedure: After informed consent was obtained the patient was prepped and draped in sterile fashion. The right groin was infiltrated with 1% lidocaine and the right femoral artery was accessed via modified Seldinger technique using a micropuncture needle and a 6 Slovenian femoral arterial sheath was placed. All catheter exchanges were performed over a guidewire under fluoroscopic guidance. A diagnostic 6 Slovenian JL4 catheter was advanced left coronary cusp but would not seat well in the left coronary artery. Diagnostic 6 Slovenian JR4 and JL 5 catheter's were then advanced to the right and left coronary arteries respectively and multiple cineangiograms were performed in varying degrees of obliquity and angulation. Thereafter a pigtail catheter was advanced into the left ventricle where hemodynamics were obtained followed by left ventriculogram. At conclusion of the procedure right iliac angiography was performed to rule out vascular complications. Findings: 1. The left main artery has mild luminal irregularities without significant stenosis.. 2. The left anterior descending artery extends to the apex. It is a diffusely small and diseased vessel with up to 50% stenosis in the proximal segment. The first diagonal artery is diffusely diseased but is less than 2 mm in caliber. 3. There is an intermediate ramus branch that is moderate caliber with mild luminal irregularities but no significant stenosis. 4. The circumflex artery is a nondominant vessel that gives rise to a very small first marginal branch and then a second marginal artery without any other significant contribution to the LV. There are luminal irregularities but no significant stenosis. 5. The right coronary artery is a dominant vessel. It is 100% occluded in the proximal segment. There are right to right homocollaterals and some faint left to right collateralization. 6. Ejection fraction is 45 % with inferior wall motion abnormalities. The basal segment is aneurysmal and akinetic, the mid segment is hypokinetic. The distal inferior wall, apex and anterior wall appear to have normal wall motion. 7. No significant mitral regurgitation. 8. No significant aortic stenosis. 9. The right iliac artery has mild atherosclerotic vascular disease but no significant stenosis, and is without evidence of vascular complications. Contrast use: 110 cc Fluoro time: 3.6 minutes Complications: none Specimens removed: none Devices implanted: none Anesthesia: moderate conscious sedation Surgeon / Physician: Chiara Conteh Second Helper: none (Jame Babcock) Estimated blood loss: minimal Specimens: none sent Condition: stable Disposition: floor - Discharge Disposition: Disch To Home/Self Care Condition at Discharge: Stable Activity: no lifting (For 1 week) Hygiene: may shower Driving: not for (2 days) - Medications / Follow-up Referrals: Chiara Conteh MD [Physician] - 2 Weeks New Prescriptions: Aspirin EC Tab 81 mg PO DAILY #30 tablet Clopidogrel [Plavix] 75 mg PO DAILY #30 tablet Metoprolol Tartrate Tab [Lopressor Tab] 25 mg PO BID #60 tablet
[2016-10-04] MEDS: OMEGA 3 ACID ETHYL ESTERS 1 GM CAPSULE PO SCH (12:49)
[2016-10-04] MEDS: SODIUM CHLORIDE 0.45% 1,000 ML IV SCH (12:50)
[2016-10-04] MEDS: PANTOPRAZOLE 40 MG TABLET PO SCH (12:50)
[2016-10-04] MEDS: SIMVASTATIN PO SCH (12:50)
[2016-10-04] MEDS: EZETIMIBE PO SCH (12:50)
[2016-10-04 16:55] VITALS: BP 175/82
--- NOTE | 2016-10-04 17:00 | Discharge Summary ---
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 Diaz, 70WM, not previously followed by cardiology. Risk factors include: Age, tobaccoism, peripheral vascular disease, dyslipidemia. Presented to the emergency department October 02, 2016 with complaints of back pain located primarily under his left scapula. His cardiac biomarkers were negative. EKG revealed old septal infarct. He underwent CT of the chest/aorta which revealed no significant abnormality. The following morning, he underwent stress testing which revealed abnormal results. He subsequently underwent cardiac catheterization October 04, 2016, performed by Dr. Conteh, with the following impression noted: Impression: 1. Severe single-vessel coronary artery disease. A. 100% proximally occluded right coronary artery with right to right and left to right collateralization, long region of stenosis. B. LAD is diffusely small and diseased with up to 50% stenosis in the proximal segment. 2. Right dominant coronary arteries. 3. Ejection fraction 45% with inferior wall regional wall motion abnormalities. 4. Mild atherosclerotic vascular disease of the right iliac artery without evidence of vascular complications. Plan: 1. Medical management. 2. Risk factor modification. He tolerated the procedure well without complication was returned to our telemetry unit in stable condition. Patient is anxious for release home and is being discharged home in stable condition. He will be given a follow-up appoint with Dr. Sánchez in approximately 2 weeks. At that visit the following will be obtained: BMP, magnesium, CBC. EKG Discharge medications include: Aspirin 81 mg 1 p.o. daily Atorvastatin 20 mg 1 p.o. nightly Plavix 75 mg 1 p.o. daily Vytorin 1 p.o. daily Metoprolol 25 mg 1 p.o. twice daily Nitroglycerin 0.4 mg sublingual as needed for chest pain Cilostazol 100 mg 1 p.o. twice daily Blood pressure will not allow for introduction of an ARB or MARIA TERESA inhibitor per - Time spent with patient Time with patient DS: Greater than 30 minutes Time spent discussing smoking cessation with patient: 3 to 10 minutes Diagnosis - Discharge Diagnosis (1) Chest pain Status: Resolved (2) Tobacco abuse Status: Chronic (3) PVD (peripheral vascular disease) Status: Chronic (4) Abdominal bruit Status: Chronic (5) Hyperlipidemia Status: Chronic (6) CAD (coronary artery disease) Status: Chronic Specialty Discharge - Follow Up or Referrals Follow up with: Chiara Conteh MD [Physician] - 10/18/16 1:10 pm (BMP, MG, CBC. EKG) Discharge Plan - Discharge Data Disposition: Disch To Home/Self Care Condition at Discharge: Stable Discharge Diet: heart healthy Activity: other (Post cath expectations) Hygiene: other (Post cath expectations) Weight Bearing at Discharge: other (Post cath expectations) Driving: other (Post cath expectations) Contact your physician if you experience:: fever over 101, Difficulty voiding, Redness or swelling, Nausea/Vomiting, Shortness of breath, Bleeding, pain uncontrolled by pain medications - Discharge Medications New Nitroglycerin Sl Tab [Nitrostat] 0.4 mg SL Q5M PRN #1 bottle PRN Reason: Chest Pain Continue Carisoprodol [Soma] 350 mg PO DAILY PRN PRN Reason: Pain Esomeprazole Magnesium [Nexium] 20 mg PO DAILY Celecoxib [Celebrex] 200 mg PO DAILY Cholecalciferol (Vitamin D3) [Vitamin D3] 5,000 unit PO DAILY Ascorbic Acid [Vitamin C] 500 mg PO DAILY Krill Oil 500 mg PO DAILY Aspirin EC Tab 81 mg PO DAILY #30 tablet Metoprolol Tartrate Tab [Lopressor Tab] 25 mg PO BID #60 tablet Ezetimibe/Simvastatin 10-20 [Vytorin 10-20] 1 tablet PO DAILY Multivitamin [Multivitamins] 1 tablet PO DAILY Hydrocodone/Acetaminophen [Hydrocodon-Acetaminoph 7.5-325] 1 tablet PO Q6HR PRN PRN Reason: Pain Cilostazol 100 mg PO BID Clopidogrel [Plavix] 75 mg PO DAILY #30 tablet Discontinued Testosterone [Androgel 1.62% Gel PUMP] 1 % DIRECTED - Follow Up or Referral Follow Up: Chiara Conteh MD [Physician] - 10/18/16 1:10 pm - Forms/Instructions Instructions: Coronary Artery Disease (GEN), Left Heart Catheterization (DC), Heart Healthy Diet (GEN) Exam - Constitutional Vitals: Period Temp Pulse Resp BP Sys/Webber Pulse Ox Last 24 Hr 98.5 F 56 18 175/82 93 Exam: General: [Appears well with no apparent distress.] [Pleasant and cooperative. ] [Appears comfortable.] HEENT: [PERRL, normocephalic, atraumatic. Mucous membranes moist. No jaundice noted. Conjunctiva moist and clear, sclerae anicteric] Neck: No JVD/HJR, no thyromegaly or lymphadenopathy noted. No carotid bruit appreciated Cardiac: [Regular rate and rhythm.] [No murmur rub or gallop.] Lungs: [Clear to auscultation without accessory muscle use to assist the respiratory pattern.] Not requiring oxygen Abdomen: Soft, bowel sounds normoactive. Nontender and nondistended. No auscultated bruit today. No abdominal thrill noted. No masses noted. Musculoskeletal: No fluid collection. Decreased range of motion is noted. Extremities: Right groin soft, free of hematoma or bruit. No clubbing, cyanosis noted. [ No edema noted.] Upper extremity pulses 2+. Left lower extremity pulse one plus. Difficult to palpate right lower extremity pulse. Capillary refill less than 3 seconds. Skin: No unusual lesions or rashes. No skin breakdown appreciated. Neuro: Awake, alert and oriented 3. Moves all extremities well without hemiparesis or paralysis. No essential tremor is appreciated. Discharge Results Procedures and tests throughout hospitalization: Pending Orders 10/04/16 10:40 CL heart Routine - Imaging and Cardiology Cardiology Procedure: report reviewed by wy Procedure: Chest x-ray: report reviewed by wy DS: Provider Date of admission: 10/04/16 08:13 Primary care physician: . No PCP Attending physician on admission: uJan Sánchez MD Consults: 10/04/16 11:44 Consult to Cardiac Rehabilitation [CONS] Routine Reason for Cardiac Rehabilitation: Risk Factor Modification Discharging clinician: Ena Kitchen NP Expected date of discharge: 10/04/16
[2016-10-04] MEDS ORDERED: ATORVASTATIN 20 MG TABLET PO SCH (21:00)
[2016-10-05] MEDS ORDERED: CLOPIDOGREL 75 MG TABLET PO SCH (09:00)
== END 2016-10-04 17:20 | disposition home or self-care (01) | DRG 287 ==
LOC: N.EDINP 11:07 → N.ED 11:07 → N.TELEN 15:41
PROVIDERS: ADMIT Internal Medicine Clinical Cardiac Electrophysiology; ATTEND Internal Medicine Clinical Cardiac Electrophysiology
PROC: CLCCHCL (ICD-10-PCS; 2016-10-04 12:15)

== ENCOUNTER 2021-08-25 14:22 | Observation (INO) ==
[2021-08-25] MEDS ORDERED: ONDANSETRON 4 MG/2 ML VIAL IV PRN (16:03)
[2021-08-25] MEDS ORDERED: BISACODYL 5 MG TABLET PO PRN (16:03)
[2021-08-25] MEDS ORDERED: ALBUTEROL/IPRATROPIUM 3 ML NEB RESP TX PRN (16:03)
[2021-08-25] MEDS ORDERED: MORPHINE 2 MG/1 ML SYRINGE IV PRN ×2 (16:03)
[2021-08-25] MEDS ORDERED: ACETAMINOPHEN 325 MG TABLET PO PRN (16:03)
[2021-08-25] MEDS ORDERED: KETOROLAC 30 MG/1 ML VIAL IV PRN (16:30)
[2021-08-25 17:00] LABS: Basophils % 0.4 % (0.0-0.8); Eosinophils # 0.1 10*3/uL (0.0-0.87); Eosinophils % 1.2 % (0.00-10.9); Hematocrit 39.4 VOL% (42.0-52.0); Hemoglobin 13.5 GM/DL (14.0-18.0); Immature Granulocytes % 0.6 %; Immature Granulocytes Absolute 0.07 #; Lymphocytes # 1.1 10*3/uL (1.4-4.0); Lymphocytes % 9.8 % (21.2-54.2); Mean Corpuscular HGB Conc 34.3 GM/DL (32-36); Mean Corpuscular Volume 97.5 FL (87-102); Mean Platelet Volume 10.1 FL (9.6-12.0); Monocytes # 0.8 10*3/uL (0.11-0.8); Monocytes % 7.5 % (1.7-12.7); Neutrophils % 80.5 % (38.7-73.9); Platelet Count 202 T/CUMM (130-400); Red Blood Count 4.04 MC/CUMM (3.8-5.5); White Blood Count 11.1 T/CUMM (4-12)
[2021-08-25 17:24] LABS: Albumin 3.6 G/DL (3.4-5.0); Bilirubin,Total 0.7 MG/DL (0.20-1.00); Calcium 9.3 MG/DL (8.5-10.1); Osmolality,Calculated 269.2 MOS/KG (273-304); Potassium 3.9 MMOL/L (3.5-5.1); Total Protein 7.1 G/DL (6.4-8.2)
[2021-08-25] MEDS: PIPERACILLIN/TAZOBACTAM 3,375 MG in SODIUM CHLORIDE 0.9% 100 ML IV SCH (18:35)
[2021-08-25] MEDS: NICOTINE 21 MG/24 HR PATCH TRANSDERM SCH (18:35)
[2021-08-25] MEDS: LACTATED RINGERS 1,000 ML IV SCH (18:35)
[2021-08-26] MEDS: PIPERACILLIN/TAZOBACTAM 3,375 MG in SODIUM CHLORIDE 0.9% 100 ML IV SCH ×2 (00:33→09:58)
[2021-08-26] MEDS: LACTATED RINGERS 1,000 ML IV SCH (06:27)
[2021-08-26 08:15] VITALS: BP 124/62
[2021-08-26] MEDS ORDERED: PANTOPRAZOLE 40 MG TABLET PO SCH (09:00)
[2021-08-26] MEDS ORDERED: ASPIRIN EC 81 MG TABLET PO SCH (09:00)
[2021-08-26] MEDS: NICOTINE 21 MG/24 HR PATCH TRANSDERM SCH (09:57)
[2021-08-26] MEDS ORDERED: ENOXAPARIN 40 MG/0.4 ML SYRINGE SUBCUT SCH (10:30)
== END 2021-08-26 10:33 | disposition home or self-care (01) ==
LOC: N.ED 14:22 → N.EDINP 17:39 → INTOOBSV 17:39 → N.3E 17:59
PROVIDERS: ADMIT Surgery; ATTEND Surgery

== ENCOUNTER 2021-11-01 08:35 | Inpatient (IN) ==
[2021-10-20 11:57] LABS: Basophils % 0.9 % (0.0-0.8); Eosinophils # 0.1 10*3/uL (0.0-0.87); Eosinophils % 2.2 % (0.00-10.9); Hematocrit 40.7 VOL% (42.0-52.0); Hemoglobin 13.6 GM/DL (14.0-18.0); Immature Granulocytes % 1.3 %; Immature Granulocytes Absolute 0.06 #; Lymphocytes # 1.1 10*3/uL (1.4-4.0); Lymphocytes % 24.3 % (21.2-54.2); Mean Corpuscular HGB Conc 33.4 GM/DL (32-36); Mean Corpuscular Volume 96.9 FL (87-102); Mean Platelet Volume 10.2 FL (9.6-12.0); Monocytes # 0.5 10*3/uL (0.11-0.8); Monocytes % 11.4 % (1.7-12.7); Neutrophils % 59.9 % (38.7-73.9); Platelet Count 217 T/CUMM (130-400); Red Cell Distribution Width 14.2 % (9.3-17.3); White Blood Count 4.6 T/CUMM (4-12)
[2021-10-20 12:04] LABS: Calcium 9.4 MG/DL (8.5-10.1); Osmolality,Calculated 279.4 MOS/KG (273-304); Potassium 5.5 MMOL/L (3.5-5.1)
[2021-10-20 12:10] LABS: PT Patient Result 10.8 SECS (10.5-12.0); Partial Thromboplastin Time 27.2 SECS (23.8-32.1)
[~2021-11-01 08:35] MED LIST: ERTAPENEM 1,000 MG in SODIUM CHLORIDE 0.9% 100 ML IV ONE
[2021-11-01] MEDS ORDERED: GABAPENTIN 400 MG CAPSULE PO ONE (08:56)
[2021-11-01] MEDS ORDERED: ACETAMINOPHEN 500 MG TABLET PO ONE (08:56)
[2021-11-01] MEDS ORDERED: DIAZEPAM 5 MG TABLET PO ONE (08:56)
[2021-11-01] MEDS ORDERED: FAMOTIDINE 20 MG TABLET PO ONE (08:56)
[2021-11-01] MEDS ORDERED: LACTATED RINGERS 1,000 ML IV SCH (09:00)
[2021-11-01] MEDS ORDERED: ALVIMOPAN 12 MG CAPSULE PO ONE (09:30)
[2021-11-01] MEDS ORDERED: cefTRIAXone 1,000 MG VIAL ONE (10:42)
[2021-11-01] MEDS ORDERED: LIDOCAINE 1% 5 ML VIAL ONE (14:07)
[2021-11-01] MEDS ORDERED: ROPIVACAINE 0.5% 30 ML VIAL ONE (14:07)
[2021-11-01] MEDS ORDERED: DEXAMETHASONE 4 MG/1 ML VIAL ONE ×2 (14:07→14:08)
[2021-11-01] MEDS ORDERED: MIDAZOLAM 2 MG/2 ML VIAL ONE (14:08)
[2021-11-01] MEDS ORDERED: fentaNYL 100 MCG/2 ML VIAL ONE (14:08)
[2021-11-01] MEDS ORDERED: PHENYLEPHRINE DRIP 20 MG/250 ML PREMIX IV ONE (14:22)
[2021-11-01] MEDS ORDERED: INDOCYANINE GREEN 25 MG VIAL IV ONE (14:45)
[2021-11-01] MEDS ORDERED: METHYLENE BLUE 10 ML VIAL IV ONE (15:56)
[2021-11-01] MEDS ORDERED: ROCURONIUM 50 MG/5 ML VIAL IV ONE (16:14)
[2021-11-01] MEDS ORDERED: propofoL 200 MG/20 ML VIAL IV ONE (16:14)
[2021-11-01] MEDS ORDERED: ETOMIDATE 40 MG/20 ML VIAL IV ONE (16:14)
[2021-11-01] MEDS ORDERED: SEVOFLURANE 1 UNIT/15 MINUTE INH ONE (16:14)
[2021-11-01] MEDS ORDERED: NEOSTIGMINE 10 MG/10 ML VIAL ONE (16:48)
[2021-11-01] MEDS ORDERED: GLYCOPYRROLATE 0.4 MG/2 ML VIAL ONE (16:48)
[2021-11-01] MEDS ORDERED: TISSUE ADHESIVE 1 EACH APPLICATOR TOP ONE (17:02)
[2021-11-01] MEDS ORDERED: HYDROmorphone 1 MG/1 ML SYRINGE ONE (17:07)
[2021-11-01] MEDS ORDERED: ONDANSETRON 4 MG/2 ML VIAL IV PRN (18:22)
[2021-11-01] MEDS ORDERED: HYDROmorphone 1 MG/1 ML SYRINGE IV PRN (18:22)
[2021-11-01] MEDS ORDERED: carisoprodoL 350 MG TABLET PO PRN (18:22)
[2021-11-01] MEDS: LACTATED RINGERS 1,000 ML IV SCH (18:55)
[2021-11-01 19:07] LABS: Basophils % 0.3 % (0.0-0.8); Eosinophils # 0.1 10*3/uL (0.0-0.87); Eosinophils % 0.6 % (0.00-10.9); Hematocrit 39.3 VOL% (42.0-52.0); Hemoglobin 13.4 GM/DL (14.0-18.0); Immature Granulocytes % 0.9 %; Immature Granulocytes Absolute 0.11 #; Lymphocytes # 0.8 10*3/uL (1.4-4.0); Lymphocytes % 6.4 % (21.2-54.2); Mean Corpuscular HGB Conc 34.1 GM/DL (32-36); Mean Corpuscular Volume 95.9 FL (87-102); Mean Platelet Volume 10.3 FL (9.6-12.0); Monocytes # 0.4 10*3/uL (0.11-0.8); Monocytes % 3.3 % (1.7-12.7); Neutrophils % 88.5 % (38.7-73.9); Platelet Count 180 T/CUMM (130-400); Red Cell Distribution Width 14.2 % (9.3-17.3); White Blood Count 11.8 T/CUMM (4-12)
[2021-11-01 19:24] LABS: Calcium 8.5 MG/DL (8.5-10.1); Osmolality,Calculated 277.5 MOS/KG (273-304); Potassium 4.9 MMOL/L (3.5-5.1)
[2021-11-01] MEDS: FERROUS SULFATE 325 MG TABLET PO SCH (21:44)
[2021-11-01] MEDS: RANOLAZINE 500 MG TABLET PO SCH (21:44)
[2021-11-01] MEDS: ALVIMOPAN 12 MG CAPSULE PO SCH (21:45)
[2021-11-01] MEDS: KETOROLAC 30 MG/1 ML VIAL IV SCH (21:45)
[2021-11-02] MEDS: KETOROLAC 30 MG/1 ML VIAL IV SCH (02:20)
[2021-11-02 04:57] LABS: Basophils % 0.1 % (0.0-0.8); Hematocrit 38.4 VOL% (42.0-52.0); Hemoglobin 13.4 GM/DL (14.0-18.0); Immature Granulocytes % 0.9 %; Lymphocytes # 0.7 10*3/uL (1.4-4.0); Lymphocytes % 6.4 % (21.2-54.2); Mean Corpuscular HGB Conc 34.9 GM/DL (32-36); Mean Corpuscular Volume 94.6 FL (87-102); Mean Platelet Volume 10.2 FL (9.6-12.0); Monocytes % 9.3 % (1.7-12.7); Neutrophils % 83.3 % (38.7-73.9); Platelet Count 149 T/CUMM (130-400); Red Blood Count 4.06 MC/CUMM (3.8-5.5); Red Cell Distribution Width 13.8 % (9.3-17.3)
[2021-11-02] MEDS: LACTATED RINGERS 1,000 ML IV SCH ×4 (04:57→21:07)
[2021-11-02 05:11] LABS: Calcium 8.5 MG/DL (8.5-10.1); Osmolality,Calculated 282.4 MOS/KG (273-304)
[2021-11-02] MEDS ORDERED: LACTATED RINGERS 1,000 ML IV ONE (07:34)
[2021-11-02] MEDS ORDERED: [UNRECOGNIZED DRUG - REMARK] PO SCH (09:00)
[2021-11-02] MEDS: TAMSULOSIN 0.4 MG CAPSULE PO SCH (09:53)
[2021-11-02] MEDS: ASCORBIC ACID 500 MG TABLET PO SCH (09:53)
[2021-11-02] MEDS: FERROUS SULFATE 325 MG TABLET PO SCH ×2 (09:54→21:10)
[2021-11-02] MEDS: RANOLAZINE 500 MG TABLET PO SCH ×2 (09:55→21:10)
[2021-11-02] MEDS: PANTOPRAZOLE 40 MG TABLET PO SCH (09:55)
[2021-11-02] MEDS: ROSUVASTATIN 20 MG TABLET PO SCH (09:55)
[2021-11-02] MEDS: ASPIRIN EC 81 MG TABLET PO SCH (09:56)
[2021-11-02] MEDS: METOPROLOL SUCCINATE XL 25 MG TABLET PO SCH (09:56)
[2021-11-02] MEDS: CHOLECALCIFEROL 5,000 UNIT TABLET PO SCH (09:56)
[2021-11-02] MEDS: ALVIMOPAN 12 MG CAPSULE PO SCH ×2 (09:56→21:10)
[2021-11-02] MEDS: MULTIVITAMIN (CENTRUM) TABLET PO SCH (09:57)
[2021-11-02] MEDS: CYANOCOBALAMIN 500 MCG TABLET PO SCH (10:01)
[2021-11-02] MEDS ORDERED: ENOXAPARIN 40 MG/0.4 ML SYRINGE SUBCUT SCH (11:30)
[2021-11-03] MEDS: LACTATED RINGERS 1,000 ML IV SCH ×2 (02:46→11:23)
[2021-11-03 05:58] LABS: Calcium 8.6 MG/DL (8.5-10.1); Osmolality,Calculated 280.5 MOS/KG (273-304); Potassium 4.2 MMOL/L (3.5-5.1)
[2021-11-03 07:36] VITALS: BP 177/90
[2021-11-03] MEDS: METOPROLOL SUCCINATE XL 25 MG TABLET PO SCH (09:45)
[2021-11-03] MEDS: MULTIVITAMIN (CENTRUM) TABLET PO SCH (09:45)
[2021-11-03] MEDS: ASCORBIC ACID 500 MG TABLET PO SCH (09:45)
[2021-11-03] MEDS: CHOLECALCIFEROL 5,000 UNIT TABLET PO SCH (09:45)
[2021-11-03] MEDS: CYANOCOBALAMIN 500 MCG TABLET PO SCH (09:45)
[2021-11-03] MEDS: ROSUVASTATIN 20 MG TABLET PO SCH (09:45)
[2021-11-03] MEDS: PANTOPRAZOLE 40 MG TABLET PO SCH (09:45)
[2021-11-03] MEDS: TAMSULOSIN 0.4 MG CAPSULE PO SCH (09:45)
[2021-11-03] MEDS: ASPIRIN EC 81 MG TABLET PO SCH (09:45)
[2021-11-03] MEDS: RANOLAZINE 500 MG TABLET PO SCH (09:45)
[2021-11-03] MEDS: FERROUS SULFATE 325 MG TABLET PO SCH (09:45)
== END 2021-11-03 11:52 | disposition home or self-care (01) | DRG 330 ==
LOC: N.OR 08:35 → N.SDSINP 08:37 → N.5E 17:24
PROVIDERS: ADMIT Surgery; ATTEND Surgery